=== PATIENT | female | born 1950 | race Two or more races ===

== ENCOUNTER 2025-05-14 16:05 | Emergency (ER) | payer MEDICAID ==
[~2025-05-14] VITALS: Ht 160 cm; Wt 66.4 kg
[2025-05-14 16:10] VITALS: BP 175/92; PULSE 73; RESP 16; TEMP 98.3; O2SAT 97
[2025-05-14] MEDS: ACETAMINOPHEN 325 MG TAB PO ONE (16:15)
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
--- NOTE | 2025-05-14 17:08 | DVH ---
Exam: CT HEAD WITHOUT CONTRAST History: FALL Technique: [address] images through the posterior fossa and the supratentorial compart ment were acquired without contrast and imaged using soft tissue and bone algorithms. RADIATION DOSE: DLP 863.9 mGy.cm; CTDI vol 53.99 mGy. Comparison: None Findings: There is no evidence of an intracranial hemorrhage, acute large vessel infarct, mass effect, or midli ne shift. Numerous calcifications throughout the cerebral parenchyma favoring sequela of prior infection. Small lacunar infarcts in the right basal ganglia and right occipital temporal lobe. There is mild cerebral atrophy. Moderate calcification of the carotid siphons. The calvarium, orbits, paranasal sinuses, sella, middle ears, and mastoids are unremarkable. Small left frontal soft tissue hematoma. Impression: 1. No acute intracranial abnormality. 2. Small left frontal soft tissue hematoma. 3. Small chronic right lacunar infarcts.
== END 2025-05-14 17:50 | disposition home or self-care (01) ==
LOC: ER 16:05
DX: S00.03XA Contusion of scalp, initial encounter (principal); E11.9 Type 2 diabetes mellitus without complications; I10 Essential (primary) hypertension; F03.90 Unspecified dementia, unspecified severity, without behavioral disturbance, psychotic disturbance, mood disturbance, and anxiety; F84.0 Autistic disorder; W18.39XA Other fall on same level, initial encounter; Y93.89 Activity, other specified; Y92.098 Other place in other non-institutional residence as the place of occurrence of the external cause; Y99.8 Other external cause status
CPT/HCPCS: 70450; 82947; 82962